=== PATIENT | female | born 1960 | race African-American/Black ===

== ENCOUNTER 2022-08-13 16:58 | Emergency (ER) | payer OTHER ==
[2022-08-13 17:09] VITALS: BP 189/98; PULSE 63; RESP 16; TEMP 98.9; BMI 35.4
== END 2022-08-13 19:52 | disposition home or self-care (01) ==
LOC: JERFT 16:58 → JER 16:58
DX: R03.0 Elevated blood-pressure reading, without diagnosis of hypertension (principal)
CPT/HCPCS: 99283-25

== ENCOUNTER 2023-01-28 14:32 | Emergency (ER) | payer OTHER ==
[2023-01-28 14:48] VITALS: BP 166/95; PULSE 95; RESP 16; TEMP 98.2; BMI 33.6
== END 2023-01-28 18:19 | disposition home or self-care (01) ==
LOC: FER 14:32
DX: M25.462 Effusion, left knee (principal); M17.12 Unilateral primary osteoarthritis, left knee; M25.562 Pain in left knee
CPT/HCPCS: 73562-TC-LT-FY; 99283-25

== ENCOUNTER 2023-11-04 04:19 | Day surgery (SDC) | payer BC ==
[2023-10-31 12:59] VITALS: BMI 27.8
[2023-11-04] MEDS ORDERED: LIDOCAINE HCL 1%, 10 MG/ML (20ML VIAL) ONE (07:19)
[2023-11-04] MEDS ORDERED: BUPIVACAINE HCL/PF 0.25% (2.5MG/ML) 10 ML VIAL ONE (07:19)
[2023-11-04] MEDS ORDERED: PROPOFOL 20 ML ONE (07:47)
[2023-11-04] MEDS ORDERED: MIDAZOLAM HCL 2 MG/2 ML SINGLE DOSE VIAL ONE ×3 (07:47→08:17)
[2023-11-04] MEDS: ceFAZolin SODIUM 1 GM VIAL IVPB ONE (08:09)
[2023-11-04] MEDS ORDERED: ONDANSETRON 4 MG/2 ML VIAL ONE (09:34)
[2023-11-04] MEDS: ONDANSETRON 4 MG/2 ML VIAL IVPB ONE (09:40)
[2023-11-04 10:41] VITALS: BP 109/76; PULSE 62; RESP 18; TEMP 97.8
== END 2023-11-04 11:00 | disposition home or self-care (01) ==
LOC: JASU-SURG 04:19
PROVIDERS: ATTEND Surgery
PROC: 0JB70ZZ Excision of Back Subcutaneous Tissue and Fascia, Open Approach (ICD-10-PCS; principal; 2023-11-04 08:00)
DX: L72.3 Sebaceous cyst (principal)
CPT/HCPCS: 88304-TC

== ENCOUNTER → 2025-02-10 | Day surgery (SDC) | payer BC | END | disposition home or self-care (01) | LOC: JRADIR 10:11 | PROVIDERS: ATTEND Internal Medicine Endocrinology, Diabetes & Metabolism | PROC: 0G9K3ZX Drainage of Thyroid Gland, Percutaneous Approach, Diagnostic (ICD-10-PCS; principal; 2025-02-10) | DX: E04.1 Nontoxic single thyroid nodule (principal) | CPT/HCPCS: 10005; 76942; 88173; 88305-TC ==